=== PATIENT | male | born 1965 | race African-American/Black ===

== ENCOUNTER → 2021-07-22 | Outpatient (CLI) | payer OTHER ==
--- NOTE | 2021-07-22 16:00 | KCIC ---
EXAM: Pelvis and right hip, 2 views; right foot, 3 views; lumbar spine, 5 views. HISTORY: Pain. COMPARISON: None. FINDINGS: Pelvis and right hip: A frontal view of the pelvis and frog-leg view the right hip are obtained. Ther e is no fracture, dislocation or subluxation. There is mild bilateral marginal acetabular spurring. T here is case small osseous excrescence at the right femoral head-neck junction suggesting a component of chronic hip impingement. There is a small right os acetabulum. Left foot: 3 views left foot are obtained. There are small corticated ossicles at the base of the fir st proximal phalanx. There is no fracture, dislocation or subluxation. There is no radiodense foreign body. There is a tiny plantar spur and minimal enthesopathy at the Achilles tendon insertion. Lumbar spine: 5 views of the lumbar spine are obtained. 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 Alternatively, these are hypoplastic T12 ribs and there are 4 nonrib-bearing lumbar segments. There is mild multilevel endplate remodeling and facet arthropa thy, predominantly the lower lumbar levels. There is no suspicious osseous lesion. There is a small s uspected calcified granuloma within the buttock soft tissues. IMPRESSION: 1. Mild multilevel degenerative change involving the lumbar spine. 2. Mild bilateral hip osteoarthritis and findings suggesting a component of right hip impingement. 3. Tiny left plantar spur. 4. No acute osseous finding. Electronically signed by: Bronwyn Cerna MD (07/22/2021 3:57 PM) [id number]
== END ==
LOC: KCIC 15:17
PROVIDERS: ATTEND Family Medicine
DX: S70.00XA Contusion of unspecified hip, initial encounter (principal); M54.31 Sciatica, right side; M16.0 Bilateral primary osteoarthritis of hip; M47.816 Spondylosis without myelopathy or radiculopathy, lumbar region; M77.8 Other enthesopathies, not elsewhere classified; X58.XXXA Exposure to other specified factors, initial encounter; Y93.89 Activity, other specified; Y92.89 Other specified places as the place of occurrence of the external cause; Y99.8 Other external cause status
CPT/HCPCS: 72110; 73501; 73630